=== PATIENT | male | born 1980 | race Caucasian/White ===

== ENCOUNTER 2021-09-04 16:34 | Emergency (ER) | payer BC ==
[~2021-09-04] VITALS: Ht 180.3 cm; Wt 106.6 kg
[2021-09-04 17:30] VITALS: BP_SYST 127
--- NOTE | 2021-09-04 17:58 | NUR ---
Patient to ED TRIAGE to gown for evaluation. Side rails up.
[2021-09-04] MEDS ORDERED: LIDOCAINE 1% 10 MG/ML, 20 ML MDV INJ ONE (18:00)
--- NOTE | 2021-09-04 18:00 | NUR ---
ER at bedside examining patient.PT TO RECEIVE I & D IN TRIAGE.
[2021-09-04] MEDS ORDERED: LIDOCAINE 1%, 20 ML MDV 20 ML ONE (18:02)
--- NOTE | 2021-09-04 18:15 | NUR ---
PT TOLERATED I&D WELL.
[2021-09-04] MEDS ORDERED: CEPH250C PO (18:29)
[2021-09-04 18:30] VITALS: BP_SYST 127
--- NOTE | 2021-09-04 18:30 | NUR ---
Patient given written and verbal discharge instructions and verbalizes understanding. ER MD discussed with patient the results and treatment provided. Patient in stable condition. ID arm band removed. Rx of KEFLEX given. Patient educated on pain management and to follow up with PMD. Pain Scale 3. Opportunity for questions provided and answered. Medication side effect fact sheet provided.
== END 2021-09-04 18:30 | disposition home or self-care (01) ==
LOC: SED 16:34
DX: L02.416 Cutaneous abscess of left lower limb (principal); Z88.6 Allergy status to analgesic agent
CPT/HCPCS: 10060; 99283; J2001